=== PATIENT | male | born 1970 ===

== ENCOUNTER 2025-07-08 06:18 | Day surgery (SDC) | payer OTHER, SELFPAY | END 2025-07-08 09:29 | disposition home or self-care (01) | LOC: GI 06:18 | PROVIDERS: ATTENDING PHYSICIAN Surgery | DX: Z12.11 Encounter for screening for malignant neoplasm of colon (principal); K64.8 Other hemorrhoids; D12.0 Benign neoplasm of cecum | CPT/HCPCS: 45380; 88305 ==